=== PATIENT | male | born 1995 | race Hispanic/Latino ===

== ENCOUNTER 2022-08-19 10:22 | Day surgery (SDC) | payer OTHER ==
[~2022-08-19] VITALS: Ht 167.6 cm; Wt 66.2 kg
--- NOTE | 2022-08-19 20:48 | NUR ---
08/19/222047 Sheets,Eva 2028 PT ARRIVED TO PACU WITH ORAL AIRWAY IN PLACE, JAW THRUST USE TO MAINTAIN AIRWAY OFF AND ON. 2032 PT HEAD TO SIDE AND ORAL AIRWAY REMOVED DUE TO PT SWALLOWING. RESP EVEN AND UNLABORED. 2036 PT COUGHING AND SUCTION USED, CLEAR SPUTUM NOTED. PT ABLE TO SWALLOW AND CLEAR AIRWAY. HOB INCREASED. 2041 PT WAKES TO TACTILE BUT DOES NOT ANSWER QUESTIONS. 2043 PT REPORTS DIZZINESS AND PLAN OF CARE DISCUSSED. 2046 PT REPORTS PAIN IN THROAT, EDUCATION GIVEN.
--- NOTE | 2022-08-19 21:23 | NUR ---
PATIENT RESTING IN POSITION, DRINKING WATER AND TOLERATING JELLO. PATIENT REPORTS PAIN WELL CONTROLLED. BREATHING EASY AND REGULAR, 100% ON RA. PLAN TO DISCHARGE AT 2200. PAINTING AND COATING WORKER IN ROOM WITH PATIENT. PLAN DC BACK TO HALF-WAY.
--- NOTE | 2022-08-19 22:01 | NUR ---
PATIENT UP TO BATHROOM VOIDED CLEAR URINE. REPORTS PAIN WELL CONTROLLED. TOLERATING JELLO AND FLUIDS. PATIENT DRESSED TO RETURN TO GROUP HOME WITH AND OTHER RN LIAISON. PROVIDED DISCHARGE INSTRUCTION, ANSWERED QUESTIONS AND CONCERNS. PATIENT TRANSPORTED OUT IN WHEELCHAIR, NURSE PUSHED PATIENT TO TRANSPORT VAN.
--- NOTE | 2022-08-20 17:03 | OR ---
[facility] [address] [place], [place] [address] Signed DATE OF OPERATION: 08/19/2022 SURGEON: Michael Ayala MD PREOPERATIVE DIAGNOSIS: Ingested foreign bodies x2 (portion of plastic comb and ballpoint pen). POSTOPERATIVE DIAGNOSIS: 1. Impacted portion of plastic comb, mid esophagus at 30 cm (extracted). 2. Ballpoint pen in 2nd and 1st part of duodenum (extracted). PROCEDURE: 1. Upper endoscopy and extraction of esophageal foreign body (three-prong grasper technique). 2. Removal of foreign body of duodenum (cold snare). ANESTHESIA: General endotracheal, Abelnio Barnhart CRNA. INDICATION: This 26-year-old man is 48 hours since swallowing two foreign bodies, one a plastic comb and the other a ballpoint pen. He presents to the emergency room having some complaints of upper abdominal and substernal pain, but no fever, chills, or other problem. Evaluation by Dr. Donohue in the emergency room confirmed on plain x-ray a ballpoint pen which appeared to be in the stomach, but no visualization of plastic comb in any part of the GI tract including esophagus, stomach, duodenum, and upper GI tract. A CT scan was performed which showed the pen in the stomach, but did not visualize any comb in the thoracic esophagus. All of the esophagus was not visualized, it is admitted. He has agreed to undergo upper endoscopy by general anesthesia, anticipating extraction of one or more foreign bodies. He understands the risks of bleeding, infection, perforation, other unforeseen complications and wished to proceed. FINDINGS: Indeed there was a portion of a black plastic comb in the mid esophagus at about 30 cm. This was extracted with a three-prong grasper ultimately. The stomach itself showed no sign of retained foreign body, but in the bulbar and 2nd portions of the duodenum was the ballpoint pen. It was unable to easily be extracted initially, but ultimately was accomplished with a snare approach. The procedure was rather prolonged, complicated, difficult in that regard. Electronically Signed By: MICHAEL AYALA MD 08/20/22 1703 PATIENT NAME: ANDRES LEONARD OPERATIVE REPORT DATE OF : [birth year] REPORT #: [id number] PHYSICIAN: MICHAEL AYALA MD PCP: NO PRIMARY CARE PHYSICIAN REPORT IS CONFIDENTIAL AND NOT TO BE RELEASED WITHOUT AUTHORIZATION [facility] [address] [place], [place] [address] Signed DESCRIPTION OF PROCEDURE: The patient brought to the endoscopy suite in the supine position, given a general endotracheal anesthetic. A bite block was placed. An Olympus video upper endoscope was passed in the hypopharynx and easily into the esophagus. In the mid esophagus at approximately 30 cm, the foreign body of a plastic comb was identified. Initially, an attempt to [place] the proximal comb with a snare was unsuccessful. A three-prong grasper was used to grab the upper portion of the comb and it was easily extracted and withdrawn from the oropharynx ultimately. The scope was reintroduced in the esophagus and passed down to the stomach. The stomach was insufflated with air. There was no evidence of ballpoint pen at that point. Passage to the pylorus was undertaken and the junction between the bulbar and 2nd portions was the ballpoint pen. It was of an appearance that it seemed unlikely to pass through the 2nd portion of the duodenum. Initial manipulations were undertaken with the snare and a three-prong grasper and so on, but no particular success was made in actually grasping the firm but rather slippery foreign body. With various manipulations, the snare was ultimately manipulated into place grasping the upper one eighth of the pen and manipulating it more proximally into the duodenal bulb. The pen would not withdraw through the pylorus despite various maneuvers to do so and the snare was allowed to relax and ultimately placed to the very end of the pin ultimately allowing withdrawal of the pin into the stomach itself. The scope was then withdrawn with all due care extracting the ballpoint pen as well. The pen was offloaded and scope reintroduced. Examination of the esophagus, stomach and duodenum showed no sign of serious injury. There was irritation and inflammation and some minor abrasions of the mucosa of the duodenum and the stomach, but no sign of perforation or other problem. The patient was taken to recovery room in good condition having suffered no known complications. CONCLUSION DIAGNOSIS: Foreign body of esophagus and of duodenum, now extracted. PLAN: Recommend avoidance of opportunity for ingestion of additional foreign bodies. He will maintain a mechanical soft diet for 48 hours. He will be able to return to the [facility] this evening... he is advised to maintain a mechanical soft diet for 48 hrs. Electronically Signed By: MICHAEL AYALA MD 08/20/22 3648 PATIENT NAME: ANDRES LEONARD OPERATIVE REPORT DATE OF : [birth year] REPORT #: [id number] PHYSICIAN: MICHAEL AYALA MD PCP: NO PRIMARY CARE PHYSICIAN REPORT IS CONFIDENTIAL AND NOT TO BE RELEASED WITHOUT AUTHORIZATION [address] [address] Signed Michael Ayala MD JM/MODL /[id number] cc: [facility] /RUBEN [place] MD Copies: EL CORDOVA ~ Electronically Signed By: MICHAEL AYALA MD 08/20/22 1703 PATIENT NAME: HORACIOANDRESJOSUE NICHOLS OPERATIVE REPORT DATE OF : [birth year] REPORT #: [id number] PHYSICIAN: MICHAEL AYALA MD PCP: NO PRIMARY CARE PHYSICIAN REPORT IS CONFIDENTIAL AND NOT TO BE RELEASED WITHOUT AUTHORIZATION
--- NOTE | 2022-08-20 17:03 | CONS ---
[facility] [address] [place], [place] [address] Signed DATE OF CONSULTATION: 08/19/2022 TIME: 7:00 p.m. REQUESTING PHYSICIAN: Dr. Donohue. PROBLEM: Ingested foreign body, stomach. HISTORY OF PRESENT ILLNESS: This 26-year-old man is a prisoner at [facility]. Yesterday, he said to have swallowed a pen as well as a small plastic comb. He presented to the emergency room where he was evaluated by Dr. Donohue including plain abdominal and chest x-ray, which shows no sign of abnormality other than a pen in the stomach. A CT scan was performed, again confirming a pen in the stomach. As far as a comb, there is no visible such foreign body that is seen. The patient thinks the comb may be in the esophagus. Close inspection of the plain x-ray as well as the CT scan shows no clear evidence of an ingested comb, however. His past medical history is notable for cleft lip repair as well as an orthopedic surgery in the past. He takes no medications on a routine basis. His motivation for swallowing the foreign body was "to get out of the retirement for a while." REVIEW OF SYSTEMS: Denies any shortness of breath or actual chest pain. Does have a sensation of mild dysphagia. He has not had hypersalivation. PHYSICAL EXAMINATION: GENERAL: Thin man who is alert, oriented and nontoxic. Trachea is midline. He has no crepitus. There is no tracheal deviation. He has no hoarseness. CHEST: Clear. HEART: Regular without murmur. ABDOMEN: Soft and nondistended. There is no focal mass or tenderness. EXTREMITIES: Show no clubbing, cyanosis, or edema. IMAGING DATA: I have reviewed the CT scan in detail as well as the radiologist report. An 11 cm Electronically Signed By: MICHAEL AYALA MD 08/20/22 1703 PATIENT NAME: ANDRES LEONARD CONSULTATION DATE OF : [birth year] REPORT #: [id number] PHYSICIAN: MICHAEL AYALA MD PCP: NO PRIMARY CARE PHYSICIAN REPORT IS CONFIDENTIAL AND NOT TO BE RELEASED WITHOUT AUTHORIZATION [facility] [address] [place], [place] [address] Signed stomach density is consistent with swallowed pen. There is no other abnormality noted. ASSESSMENT: The foreign body that has been swallowed is a pen and is unlikely to pass more than 48 hours now since his ingestion. Although it is possible the length of the pen, the angle of the duodenum, and other anatomic factors would make it unlikely to pass. As regards, perforation would be rather unlikely, however. More concerning to me is the reported ingestion of a small plastic comb. It is not visible and may be present as well and of course may be in the esophagus as the patient himself postulates. He is not having severe dysphagia, hypersalivation, or anything else to suggest obstruction of the esophagus with a foreign body. In any case, endoscopic evaluation and removal endoscopically would be most preferable. On occasion, endoscopic means of removal are not possible and in that situation operation with gastrotomy to remove foreign body may be needed. I did discuss this with him in detail. More likely than not an endoscopic approach alone will be successful, but if not regrouping and revisiting the idea of open operation would have to be made. MD GLYNN Mann/MODL /[id number] cc: MD El Davis FNP [facility] Copies: EL CORDOVA ~ Electronically Signed By: MICHAEL AYALA MD 08/20/22 1703 PATIENT NAME: ANDRES LEONARD CONSULTATION DATE OF : [birth year] REPORT #: [id number] PHYSICIAN: MICHAEL AYALA MD PCP: NO PRIMARY CARE PHYSICIAN REPORT IS CONFIDENTIAL AND NOT TO BE RELEASED WITHOUT AUTHORIZATION
== END 2022-08-19 22:00 | disposition home or self-care (01) ==
LOC: ED 10:22 → MS 10:24 → ED 10:24 → DSVR 19:07 → DS 19:07 → MS 22:00
PROVIDERS: ATTEND Surgery
PROC: 0DC98ZZ Extirpation of Matter from Duodenum, Via Natural or Artificial Opening Endoscopic (ICD-10-PCS; 2022-08-19)
PROC: 0DC58ZZ Extirpation of Matter from Esophagus, Via Natural or Artificial Opening Endoscopic (ICD-10-PCS; principal; 2022-08-19 20:15)
DX: T18.198A Other foreign object in esophagus causing other injury, initial encounter (principal); T18.3XXA Foreign body in small intestine, initial encounter
CPT/HCPCS: 36415; 74022; 74177; 80053; 81003; 85025; 96360; 96361; 99285-25; C9803; J0330; J1885; J2250; J2405; J2704; J3010; J7121; U0003